=== PATIENT | female | born 1965 | race Caucasian/White ===

== ENCOUNTER 2017-08-07 21:17 | Emergency (ER) | payer BC ==
[2017-08-07] MEDS ORDERED: Cyclobenzaprine 10 MG Tab PO ONE (22:43)
--- NOTE | 2017-08-07 22:54 | EDM.PDOC ---
ED HPI GENERAL MEDICAL PROBLEM - General Chief Complaint: General Stated Complaint: CHEST PAINS Time Seen by Provider: 08/07/17 22:36 Source of Information: Reports: Patient, Family, RN Notes Reviewed History Limitations: Reports: No Limitations - History of Present Illness INITIAL COMMENTS - FREE TEXT/NARRATIVE: 52-year-old female presents emergency department day complaint of headache and neck pain however by the time I arrived if the headache has resolved. She is also anxious and concerned that she might be having a stroke Right Posterior Temporal Head Pain Score (Numeric/FACES): 4 - Related Data Allergies Allergy/AdvReac Type Severity Reaction Status Date / Time ampicillin Allergy Hives Verified 07/12/13 23:37 aspirin Allergy Cannot Verified 07/12/13 23:37 Remember clarithromycin [From Biaxin] Allergy Anaphylactic Verified 07/12/13 23:37 Shock Home Meds: Home Meds Albuterol Sulfate [Proair Hfa] 2 inh INH Q4H PRN 08/07/17 [History] Past Medical History Cardiovascular History: Reports: Heart Murmur (mitral valve), Other (See Below) Other Cardiovascular History: recently diagnosed Respiratory History: Reports: Other (See Below) Other Respiratory History: cold x 2 months Gastrointestinal History: Reports: Cholelithiasis [employer]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: Psychiatric History: Reports: Depression Social & Family History - Tobacco Use Smoking Status *Q: Current Every Day Smoker Years of Tobacco use: 40 Packs/Tins Daily: 1 Used Tobacco, but Quit: No - Caffeine Use Caffeine Use: Reports: Soda - Alcohol Use Days Per Week of Alcohol Use: 0 - Recreational Drug Use Recreational Drug Use: No ED ROS GENERAL - Review of Systems Review Of Systems: See Below Constitutional: Reports: No Symptoms HEENT: Reports: No Symptoms Respiratory: Reports: No Symptoms Cardiovascular: Reports: No Symptoms GI/Abdominal: Reports: No Symptoms : Reports: No Symptoms Musculoskeletal: Reports: No Symptoms Skin: Reports: No Symptoms Neurological: Reports: Headache, Tingling ED EXAM, GENERAL - Physical Exam Exam: See Below Free Text/Narrative:: General: Female, not in any distress, alert and oriented x3 HEENT: head is atraumatic normocephalic, eyes pupils equal round reactive to light, sclera clear no conjunctivitis appreciated. Ears tympanic membranes clear and pérez landmarks and light reflex are present bilaterally canals are clear. Nose no septal deviation, nares are clear, no blood present. Mouth mucosa is moist and pink no erythema or exudate noted in soft palate, tongue is midline uvula is midline, dentition is intact. Neck: Supple no thyromegaly no tracheal deviation. Nodes: Cervical nodes subclavicular nodes nontender no palpable lymphadenopathy noted. Lungs: clear to auscultation bilaterally with symmetrical respirations, no adventitious noise appreciated. CV: Regular rate and rhythm S1 and S2 appreciated grade 2/6 systolic ejection murmur best appreciated left sternal border, no rubs or gallops noted. Abdomen: Soft, nontender, no palpable masses or organomegaly appreciated, no distention no guarding bowel sounds are present, [scars ]. Neuro: Cranial nerves II through XII grossly intact, power is 5 out 5 in upper and lower extremities, +2 can do finger to nose without difficulty no dysdiadochokinesis no difficulty with rapid alternating movements can do heel-to -leiva without difficulty Romberg is negative, has adequate gait can do heel to toe, can toe walk and heel walk no cerebellar dysfunction no focal neurologic deficit Skin: Warm and dry, intact Extremities: No lower extremity edema appreciated, Course - Vital Signs Last Recorded V/S: Last Vital Signs Temp 96.4 F 08/07/17 21:27 Pulse 78 08/07/17 21:27 Resp 18 08/07/17 21:27 BP 148/85 H 08/07/17 21:27 Pulse Ox 98 08/07/17 21:27 - Orders/Labs/Meds Meds: Medications Discontinued Medications Generic Name Dose Route Start Last Admin Trade Name Douglasq PRN Reason Stop Dose Admin Cyclobenzaprine HCl 10 mg 08/07/17 22:43 08/07/17 22:49 Flexeril PO 08/07/17 22:44 10 mg ONETIME ONE Administration Departure - Departure Time of Disposition: 23:23 Disposition: Home, Self-Care 01 Condition: Fair Clinical Impression: Anxiety - Discharge Information Referrals: Bre Robison RN [Primary Care Provider] - Forms: ED Department Discharge Additional Instructions: Use Ativan as needed for anxiety symptoms, Please followup with your primary care provider in 3-5 days if not better, please call return to the emergency department with worsening of symptoms. - Assessment/Plan Plan: Assessment Acuity = acute Site and laterality = probable anxiety Etiology = generalized anxiety disorder Manifestations = none Location of injury = Home Lab values = none Plan Because her symptoms had resolved by the time I had opportunity to evaluate her I am suspicious for anxiety component, we did try Flexeril for her neck pain headache issues which she did receive some relief from. She does admit to being anxious I therefore prescription written for Ativan 1 mg by mouth 3 times a day when necessary I will have follow-up with her primary care in 3-5 days for reevaluation This note was dictated using [employer] voice recognition software please call with any questions on syntax or jennifer.
== END 2017-08-07 23:32 | disposition home or self-care (01) ==
LOC: JP.ED 21:17
DX: F41.9 Anxiety disorder, unspecified (principal); F17.210 Nicotine dependence, cigarettes, uncomplicated; Z88.8 Allergy status to other drugs, medicaments and biological substances; Z88.1 Allergy status to other antibiotic agents
CPT/HCPCS: 99284; A9270

== ENCOUNTER 2020-04-04 13:12 | Emergency (ER) | payer OTHER, BC ==
--- NOTE | 2020-04-04 14:32 | CR ---
Foot Comp Min 3V Lt CLINICAL HISTORY: Injury FINDINGS: There is no acute fracture or dislocation within the foot. No destructive changes are present. IMPRESSION: No acute bony process.
--- NOTE | 2020-04-04 16:10 | EDM.PDOC ---
ED HPI GENERAL MEDICAL PROBLEM - General Chief Complaint: Lower Extremity Injury/Pain Stated Complaint: FELL YESTERDAY INJURED LEFT FOOT Time Seen by Provider: 04/04/20 16:00 Source of Information: Reports: Patient History Limitations: Reports: No Limitations - History of Present Illness INITIAL COMMENTS - FREE TEXT/NARRATIVE: 55 yo female roller her L foot over yesterday. Still hurts today. Taking acetaminophen with adequate relief. No other injuries. 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 Left Foot Pain Score (Numeric/FACES): 3 - Related Data Allergies Allergy/AdvReac Type Severity Reaction Status Date / Time clarithromycin [From Biaxin] Allergy Severe Anaphylactic Verified 04/04/20 15:57 Shock ampicillin Allergy Hives Verified 04/04/20 15:57 aspirin Allergy Cannot Verified 04/04/20 15:57 Remember Home Meds: Home Meds Albuterol Sulfate [Proair Hfa] 2 inh INH Q4H PRN 08/07/17 [History] Past Medical History Cardiovascular History: Reports: Heart Murmur, Other (See Below) Other Cardiovascular History: recently diagnosed Respiratory History: Reports: Other (See Below) Other Respiratory History: cold x 2 months Gastrointestinal History: Reports: Cholelithiasis ADMINISTRATOR History: Reports: Psychiatric History: Reports: Depression Social & Family History - Tobacco Use Tobacco Use Status *Q: Current Every Day Tobacco User Years of Tobacco use: 43 Packs/Tins Daily: 1 Second Hand Smoke Exposure: No - Caffeine Use Caffeine Use: Reports: Soda Other Caffeine Use: 1 pop in the am daily - Alcohol Use Days Per Week of Alcohol Use: 0 - Recreational Drug Use Recreational Drug Use: No Review of Systems - Review of Systems Review Of Systems: See Below Constitutional: Reports: No Symptoms Musculoskeletal: Reports: Foot Pain (L lateral) Skin: Reports: No Symptoms Neurological: Reports: No Symptoms ED EXAM, GENERAL - Physical Exam Exam: See Below Exam Limited By: No Limitations General Appearance: Alert, WD/WN, No Apparent Distress Extremities: Normal Inspection, Normal Range of Motion, No Pedal Edema, Other (mild lateral foot pain). No: Non-Tender, Pedal Edema, Limited Range of Motion, Increased Warmth, Redness Neurological: Alert, Oriented, CN II-XII Intact, Normal Cognition, No Motor/Sensory Deficits Psychiatric: Normal Affect, Normal Mood Skin Exam: Warm, Dry, Intact, Normal Color, No Rash Course - Vital Signs Last Recorded V/S: Last Vital Signs Temp 35.9 C L 04/04/20 15:58 Pulse 71 04/04/20 15:58 Resp 16 04/04/20 15:58 BP 116/60 04/04/20 15:58 Pulse Ox 98 04/04/20 15:58 - Radiology Interpretation Free Text/Narrative:: Foot X-ray-neg Departure - Departure Time of Disposition: 16:20 Disposition: Home, Self-Care 01 Condition: Good Clinical Impression: Sprain of left foot Qualifiers: Encounter type: initial encounter Qualified Code(s): S93.602A - Unspecified sprain of left foot, initial encounter - Discharge Information *PRESCRIPTION DRUG MONITORING PROGRAM REVIEWED*: No *COPY OF PRESCRIPTION DRUG MONITORING REPORT IN PATIENT ASIF: No Referrals: PCP,None [Primary Care Provider] - Forms: ED Department Discharge Additional Instructions: Use the post op shoe for support. Continue acetaminophen and/or ibuprofen for pain relief. If not resolved in a week get rechecked for a repeat X-ray, this can be done in the clinic. Sepsis Event Note (ED) - Evaluation Sepsis Screening Result: No Definite Risk - Focused Exam Vital Signs: Vital Signs Temp Pulse Resp BP Pulse Ox 04/04/20 15:58 35.9 C L 71 16 116/60 98 04/04/20 15:32 35.9 C L 71 16 116/60 98
== END 2020-04-04 16:45 | disposition home or self-care (01) ==
LOC: JP.ED 13:12
DX: S93.602A Unspecified sprain of left foot, initial encounter (principal); F17.210 Nicotine dependence, cigarettes, uncomplicated; Z88.1 Allergy status to other antibiotic agents; Z88.6 Allergy status to analgesic agent; W23.0XXA Caught, crushed, jammed, or pinched between moving objects, initial encounter
CPT/HCPCS: 73630-26-LT; 73630-LT; 99283-25

== ENCOUNTER 2023-04-10 18:14 | Inpatient (IN) | payer BC ==
[2023-04-10] MEDS ORDERED: Albuterol/Ipratropium 3.0-0.5 MG/3 ML Neb Soln NEB ONE (18:59)
[2023-04-10 19:22] LABS: BASOPHILS PERCENT AUTO 0.1 % (0.1-1.3); HEMATOCRIT 44.1 % (34.3-46.0); HEMOGLOBIN 14.5 g/dL (11.2-15.5); IMMATURE GRAN PERCENT AUTO 0.2 % (0.0-0.7); LYMPHOCYTES ABSOLUTE AUTO 0.85 K/uL (0.8-3.3); LYMPHOCYTES PERCENT AUTO 9.3 % (11.4-47.7); MEAN CORPUSCULAR HEMOGLOBIN 29.7 pg (31.6-35.5); MEAN CORPUSCULAR HGB CONC 32.9 g/dL (31.6-35.5); MEAN CORPUSCULAR VOLUME 90.2 fL (81.4-99.0); MONOCYTES ABSOLUTE AUTO 0.49 K/uL (0.20-0.90); MONOCYTES PERCENT AUTO 5.4 % (3.3-12.6); NEUTROPHILS ABSOLUTE AUTO 7.75 K/uL (1.0-7.6); PLATELET COUNT,PLT 205 K/uL (130-375); RED BLOOD CELL COUNT 4.89 M/uL (3.77-5.24); WHITE BLOOD CELL COUNT,WBC 9.1 K/uL (3.2-11.0)
[2023-04-10 19:25] LABS: BASOPHILS ABSOLUTE AUTO 0.01 K/uL (0.00-0.10); IMMATURE GRAN ABSOLUTE AUTO 0.02 K/uL (0.00-0.23)
[2023-04-10 19:42] LABS: CORONAVIRUS COVID-19 NAA NEGATIVE (NEGATIVE); INFLUENZA A NAA NEGATIVE (NEGATIVE); INFLUENZA B NAA NEGATIVE (NEGATIVE); RESPIRATORY SYNCYTIAL VIR NAA NEGATIVE (NEGATIVE)
[2023-04-10 19:42] LABS: A/G RATIO 0.8 (1.2-2.2); ALANINE AMINOTRANSFERASE,ALT 20 U/L (12-78); ALKALINE PHOSPHATASE 93 U/L (46-116); ANION GAP 10.9 mmol/L (5.0-14.0); ASPARTATE AMNIOTRANSFERASE,AST 24 U/L (15-37); BILIRUBIN TOTAL 0.4 mg/dL (0.2-1.0); BLOOD UREA NITROGEN,BUN 14 mg/dL (7-18); CALCIUM 8.2 mg/dL (8.5-10.1); CARBON DIOXIDE,CO2 29 mmol/L (21-32); CHLORIDE,CL 98 mmol/L (100-108); CREATININE 0.7 mg/dL (0.6-1.0); ESTIMATED GFR 99 mL/min (>60); GLUCOSE RANDOM 139 mg/dL (74-106); POTASSIUM,K 3.9 mmol/L (3.6-5.2); PROTEIN TOTAL,TP 6.9 g/dL (6.4-8.2); SODIUM,NA 134 mmol/L (140-148)
[2023-04-10] MEDS ORDERED: Levofloxacin/Dextrose 5%-Water 750 MG in Premix Bag 1 BAG IV ONE (20:05)
[2023-04-10] MEDS ORDERED: Nicotine 21 MG/24 Hr Patch TRDERM PRN (21:34)
[2023-04-10] MEDS ORDERED: Ondansetron 4 MG Tab.DIS PO PRN (21:34)
[2023-04-10] MEDS ORDERED: Ondansetron 4 MG/2 ML SDV IV PRN (21:34)
[2023-04-10] MEDS ORDERED: Albuterol 0.083% 2.5 MG/3 ML Neb Soln NEB PRN (21:34)
[2023-04-10] MEDS ORDERED: Magnesium Hydroxide 400 MG/5 ML Susp 30 ML Cup PO PRN (21:34)
[2023-04-10] MEDS ORDERED: Enoxaparin 40 MG/0.4 ML Syringe SUBCUT ONE (21:45)
[2023-04-10] MEDS: Lactobacillus Rhamnosus GG (Probiotic) Cap PO SCH (22:26)
[2023-04-10] MEDS: Albuterol/Ipratropium 3.0-0.5 MG/3 ML Neb Soln NEB SCH (22:27)
[2023-04-10] MEDS: Melatonin 3 MG Tab PO PRN (22:27)
[2023-04-11] MEDS ORDERED: Levofloxacin/Dextrose 5%-Water 750 MG in Premix Bag 1 BAG IV ONE (00:15)
[2023-04-11] MEDS: Acetaminophen 325 MG Tab PO PRN ×2 (00:40→07:40)
[2023-04-11] MEDS ORDERED: guaiFENesin/Dextromethorphan 100-10 MG/5 ML Soln 10 ML Cup PO PRN (02:48)
[2023-04-11 04:55] LABS: BASOPHILS PERCENT AUTO 0.2 % (0.1-1.3); HEMATOCRIT 44.8 % (34.3-46.0); HEMOGLOBIN 14.5 g/dL (11.2-15.5); IMMATURE GRAN PERCENT AUTO 0.1 % (0.0-0.7); LYMPHOCYTES ABSOLUTE AUTO 1.17 K/uL (0.8-3.3); LYMPHOCYTES PERCENT AUTO 13.5 % (11.4-47.7); MEAN CORPUSCULAR HEMOGLOBIN 29.5 pg (31.6-35.5); MEAN CORPUSCULAR HGB CONC 32.4 g/dL (31.6-35.5); MEAN CORPUSCULAR VOLUME 91.2 fL (81.4-99.0); MONOCYTES ABSOLUTE AUTO 0.48 K/uL (0.20-0.90); MONOCYTES PERCENT AUTO 5.6 % (3.3-12.6); NEUTROPHILS ABSOLUTE AUTO 6.96 K/uL (1.0-7.6); NEUTROPHILS PERCENT AUTO 80.6 % (40.0-78.1); PLATELET COUNT,PLT 211 K/uL (130-375); RED BLOOD CELL COUNT 4.91 M/uL (3.77-5.24); WHITE BLOOD CELL COUNT,WBC 8.6 K/uL (3.2-11.0)
[2023-04-11 04:58] LABS: BASOPHILS ABSOLUTE AUTO 0.02 K/uL (0.00-0.10); IMMATURE GRAN ABSOLUTE AUTO 0.01 K/uL (0.00-0.23)
[2023-04-11 05:10] LABS: CALCIUM 8.3 mg/dL (8.5-10.1); CREATININE 0.7 mg/dL (0.6-1.0); EST CRCL DRUG DOSING (CG) 73.8 mL/min; POTASSIUM,K 4.3 mmol/L (3.6-5.2)
[2023-04-11 05:13] LABS: ANION GAP 10.3 mmol/L (5.0-14.0)
[2023-04-11] MEDS: Albuterol/Ipratropium 3.0-0.5 MG/3 ML Neb Soln NEB SCH ×4 (05:54→20:50)
[2023-04-11] MEDS: Lactobacillus Rhamnosus GG (Probiotic) Cap PO SCH ×2 (09:26→20:50)
[2023-04-11] MEDS: Metoprolol Succinate 25 MG Tab.ER PO SCH (10:27)
[2023-04-11] MEDS: Aspirin 81 MG Tab.EC PO SCH (10:27)
[2023-04-11] MEDS: Levofloxacin/Dextrose 5%-Water 750 MG in Premix Bag 1 BAG IV SCH (20:44)
[2023-04-11] MEDS: Sennosides/Docusate Sodium 50-8.6 MG Tab PO PRN (20:50)
[2023-04-11] MEDS: Enoxaparin 40 MG/0.4 ML Syringe SUBCUT SCH (20:50)
[2023-04-12] MEDS: Acetaminophen 325 MG Tab PO PRN ×2 (00:48→08:02)
[2023-04-12] MEDS: Albuterol/Ipratropium 3.0-0.5 MG/3 ML Neb Soln NEB SCH ×4 (06:58→20:16)
[2023-04-12] MEDS: Metoprolol Succinate 25 MG Tab.ER PO SCH (09:30)
[2023-04-12] MEDS: Lactobacillus Rhamnosus GG (Probiotic) Cap PO SCH ×2 (09:30→20:16)
[2023-04-12] MEDS: Aspirin 81 MG Tab.EC PO SCH (09:30)
[2023-04-12] MEDS: Levofloxacin/Dextrose 5%-Water 750 MG in Premix Bag 1 BAG IV SCH (20:16)
[2023-04-12] MEDS: Melatonin 3 MG Tab PO PRN (20:16)
[2023-04-12] MEDS: Enoxaparin 40 MG/0.4 ML Syringe SUBCUT SCH (20:18)
[2023-04-13] MEDS: Albuterol/Ipratropium 3.0-0.5 MG/3 ML Neb Soln NEB SCH ×4 (06:53→20:21)
[2023-04-13] MEDS: Acetaminophen 325 MG Tab PO PRN ×3 (07:56→23:00)
[2023-04-13] MEDS: Metoprolol Succinate 25 MG Tab.ER PO SCH (09:05)
[2023-04-13] MEDS: Lactobacillus Rhamnosus GG (Probiotic) Cap PO SCH ×2 (09:05→20:21)
[2023-04-13] MEDS: Aspirin 81 MG Tab.EC PO SCH (09:05)
[2023-04-13] MEDS: methylPREDNISolone Sodium Succinate 40 MG/1 ML SDV IVPUSH SCH ×2 (10:59→17:37)
[2023-04-13] MEDS: Levofloxacin/Dextrose 5%-Water 750 MG in Premix Bag 1 BAG IV SCH (20:21)
[2023-04-13] MEDS: Enoxaparin 40 MG/0.4 ML Syringe SUBCUT SCH (20:21)
[2023-04-14] MEDS: methylPREDNISolone Sodium Succinate 40 MG/1 ML SDV IVPUSH SCH ×3 (01:40→17:31)
[2023-04-14] MEDS: Albuterol/Ipratropium 3.0-0.5 MG/3 ML Neb Soln NEB SCH ×4 (06:55→20:26)
[2023-04-14] MEDS: Metoprolol Succinate 25 MG Tab.ER PO SCH (08:33)
[2023-04-14] MEDS: Lactobacillus Rhamnosus GG (Probiotic) Cap PO SCH ×2 (08:33→20:26)
[2023-04-14] MEDS: Aspirin 81 MG Tab.EC PO SCH (08:34)
[2023-04-14] MEDS: Acetaminophen 325 MG Tab PO PRN ×2 (14:09→23:59)
[2023-04-14] MEDS: Enoxaparin 40 MG/0.4 ML Syringe SUBCUT SCH (20:26)
[2023-04-14] MEDS ORDERED: Levofloxacin 250 MG Tab PO SCH (21:00)
[2023-04-15] MEDS: Albuterol/Ipratropium 3.0-0.5 MG/3 ML Neb Soln NEB SCH ×2 (06:56→10:37)
[2023-04-15] MEDS: Sennosides/Docusate Sodium 50-8.6 MG Tab PO PRN (07:35)
[2023-04-15] MEDS ORDERED: predniSONE 20 MG Tab PO SCH (09:00)
[2023-04-15] MEDS: Metoprolol Succinate 25 MG Tab.ER PO SCH (09:13)
[2023-04-15] MEDS: Lactobacillus Rhamnosus GG (Probiotic) Cap PO SCH (09:13)
[2023-04-15] MEDS: Aspirin 81 MG Tab.EC PO SCH (09:13)
== END 2023-04-15 13:11 | disposition home or self-care (01) | DRG 139 ==
LOC: JP.ED 18:14 → JP.MS 20:41
PROVIDERS: ADMIT Registered Nurse; ATTEND Hospitalist
DX: J18.9 Pneumonia, unspecified organism (principal); J96.01 Acute respiratory failure with hypoxia; K81.1 Chronic cholecystitis; F32.A Depression, unspecified; E66.9 Obesity, unspecified; F17.210 Nicotine dependence, cigarettes, uncomplicated; K82.8 Other specified diseases of gallbladder; I42.1 Obstructive hypertrophic cardiomyopathy; I47.20 Ventricular tachycardia, unspecified; Z90.49 Acquired absence of other specified parts of digestive tract; Z68.42 Body mass index [BMI] 45.0-49.9, adult; Z11.52 Encounter for screening for COVID-19; Z88.1 Allergy status to other antibiotic agents; Z95.0 Presence of cardiac pacemaker; Z79.82 Long term (current) use of aspirin; Z79.899 Other long term (current) drug therapy; Z88.0 Allergy status to penicillin; Z88.8 Allergy status to other drugs, medicaments and biological substances
CPT/HCPCS: 0241U; 36415; 71046; 71046-26; 80048; 80053; 83605; 85025; 94640; 97110-GP; 97161-GP; 97530-GP; 99284; 99285; A9270-GY; J1650; J1956; J2920; J7512; J7620; Q0162

== ENCOUNTER 2023-12-12 10:19 | Emergency (ER) | payer BC ==
[2023-12-12] MEDS: Bacitracin Oint 1 GM U/D Packet TOP ONE (12:18)
[2023-12-12] MEDS: Lidocaine 1% with EPINEPHrine 1:100,000 50 ML MDV SUBCUT STA (12:18)
== END 2023-12-12 12:19 | disposition home or self-care (01) ==
LOC: JP.ED 10:19
DX: S81.812A Laceration without foreign body, left lower leg, initial encounter (principal); E66.9 Obesity, unspecified; Z95.0 Presence of cardiac pacemaker; F17.210 Nicotine dependence, cigarettes, uncomplicated; Z79.82 Long term (current) use of aspirin; Z88.0 Allergy status to penicillin; Z88.1 Allergy status to other antibiotic agents; Z68.41 Body mass index [BMI] 40.0-44.9, adult; X58.XXXA Exposure to other specified factors, initial encounter
CPT/HCPCS: 12001; 99282